=== PATIENT | female | born 1955 | race Caucasian/White ===

== ENCOUNTER 2020-12-15 12:46 | Outpatient (CLI) | payer MEDICARE | END 2020-12-15 12:47 | disposition home or self-care (01) | LOC: BICMRI 12:46 | PROVIDERS: ATTEND Psychiatry & Neurology Neurology | DX: G57.10 Meralgia paresthetica, unspecified lower limb (principal); M47.816 Spondylosis without myelopathy or radiculopathy, lumbar region | CPT/HCPCS: 71046; 72148 ==

== ENCOUNTER 2020-12-15 14:13 | Outpatient (CLI) | payer MEDICARE | END 2020-12-15 14:14 | disposition home or self-care (01) | LOC: BICMAMMO 14:13 | PROVIDERS: ATTEND Psychiatry & Neurology Neurology | DX: Z12.31 Encounter for screening mammogram for malignant neoplasm of breast (principal) | CPT/HCPCS: 77063; 77067 ==

== ENCOUNTER 2023-06-18 19:57 | Inpatient (IN) | payer MEDICARE ==
[2023-06-18 20:54] LABS: #Monocytes 0.3 thou/uL (0.11-0.59); #Neutrophils 4.1 thou/uL (1.40-6.50); %Basophils 0.4 % (0.0-1.0); %Eosinophils 0.5 % (0.0-10.0); %Lymphocytes 22.3 % (21.0-51.0); %Monocytes 4.6 % (0.0-10.0); %Neutrophils 71.5 % (42.0-75.0); Hematocrit 34.9 % (36.0-47.0); Hemoglobin 11.4 g/dL (12.0-16.0); Mean Corpuscular HGB CONC 32.7 g/dL (32.0-36.0); Mean Corpuscular Hemoglobin 27.9 pg (27.0-31.0); Mean Corpuscular Volume 85.5 fl (78.0-98.0); Mean Platelet Volume 10.2 fL (7.4-10.4); Platelet Count 238 10x3/uL (130-400); RBC Distribution Width 16.6 % (11.5-14.5); Red Blood Cell (RBC) Count 4.08 mill/uL (4.20-5.40); White Blood Cell (WBC) Count 5.7 10x3/uL (4.8-10.8)
[2023-06-18 21:18] LABS: ALT (SGPT) 10 U/L (8-55); AST (SGOT) 13 U/L (5-34); Alkaline Phosphatase 67 U/L (40-110); Anion Gap 17 mmol/L (10-20); BUN (Urea Nitrogen) 33 mg/dL (9.8-20.1); Bilirubin, Total 0.4 mg/dL (0.2-1.2); Calc. Creatinine Clearance 0 mL/min (70-130); Calcium 8.7 mg/dL (7.8-10.44); Carbon Dioxide 13 mmol/L (23-31); Chloride 110 mmol/L (98-107); Estimated GFR 21; Globulin 2.4 g/dL (2.4-3.5); Glucose 87 mg/dL (80-115); Potassium 4.8 mmol/L (3.5-5.1); Protein, Total 6.4 g/dL (5.8-8.1); Sodium 135 mmol/L (136-145)
[2023-06-18 21:19] LABS: Phosphorus 4.8 mg/dL (2.3-4.7)
[2023-06-18 21:27] LABS: Troponin I Less than 0.010 ng/mL (< 0.028)
[2023-06-18] MEDS ORDERED: Magnesium 2 GM/50 ML BAG (IN WATER) ONE (21:28)
[2023-06-18 21:38] LABS: Bacteria/HPF None Seen HPF (None Seen); Bilirubin Negative (Negative); Blood, Urine Negative (Negative); CAUTI Indications for Culture < 2yrs of age; Clarity Turbid (Clear); Glucose, Urine (Dipstick) Normal (Negative); Ketone, Urine Negative (Negative); Leukocyte Negative Leu/uL (Negative); Nitrite Negative (Negative); Protein, Urine (Dipstick) 50 mg/dL (Neg-Trace); RBC/HPF 0-3 HPF (0-3); Specific Gravity, Urine 1.017 (1.002-1.036); Urobilinogen Normal mg/dL (Less than 2); WBC/HPF 0-3 HPF (0-3); pH, Urine 5.5 (5.0-9.0)
[2023-06-18] MEDS ORDERED: Sodium Bicarbonate 150 MEQ in Dextrose 5% in Water 1,000 ML IV SCH (21:45)
[2023-06-18 21:56] LABS: Urine Culture Reflex Yes Yes
[2023-06-18 22:02] LABS: SARS-CoV-2 NAA Rapid Test Not Detected (NotDetected)
[2023-06-18] MEDS ORDERED: Acetaminophen 325 MG TAB PO PRN (22:50)
[2023-06-18] MEDS ORDERED: Metoclopramide HCl 10 MG/2 ML VIAL IVP PRN (22:54)
[2023-06-18] MEDS ORDERED: Pregabalin 50 MG CAP PO SCH (23:00)
[2023-06-18] MEDS ORDERED: Ipratropium/Albuterol 3 ML NEB NEB PRN (23:06)
[2023-06-18] MEDS ORDERED: Ondansetron ODT 4 MG TAB PO PRN (23:13)
[2023-06-18] MEDS ORDERED: Ondansetron PF 4 MG/2 ML Vial IVP PRN (23:13)
[2023-06-18] MEDS ORDERED: guaiFENesin ER 600 MG TAB PO SCH (23:15)
[2023-06-19 01:35] VITALS: BMI 31.4
[2023-06-19] MEDS: Sodium Bicarbonate 150 MEQ in Dextrose 5% in Water 1,000 ML IV SCH ×2 (01:49→10:57)
[2023-06-19] MEDS: Pregabalin 25 MG CAP PO SCH ×2 (02:04→21:56)
[2023-06-19 02:51] LABS: #Eosinphils 0.1 thou/uL (0.0-0.7); #Monocytes 0.4 thou/uL (0.11-0.59); #Neutrophils 3.3 thou/uL (1.40-6.50); %Basophils 0.4 % (0.0-1.0); %Eosinophils 0.9 % (0.0-10.0); %Lymphocytes 32.7 % (21.0-51.0); %Neutrophils 58.5 % (42.0-75.0); Hematocrit 31.9 % (36.0-47.0); Hemoglobin 10.6 g/dL (12.0-16.0); Mean Corpuscular HGB CONC 33.2 g/dL (32.0-36.0); Mean Corpuscular Hemoglobin 27.7 pg (27.0-31.0); Mean Corpuscular Volume 83.3 fl (78.0-98.0); Mean Platelet Volume 10.1 fL (7.4-10.4); Platelet Count 202 10x3/uL (130-400); RBC Distribution Width 16.7 % (11.5-14.5); Red Blood Cell (RBC) Count 3.83 mill/uL (4.20-5.40); White Blood Cell (WBC) Count 5.6 10x3/uL (4.8-10.8)
[2023-06-19 03:13] LABS: Magnesium 1.7 mg/dL (1.6-2.6)
[2023-06-19 03:45] LABS: Anion Gap 16 mmol/L (10-20); BUN (Urea Nitrogen) 31 mg/dL (9.8-20.1); Calc. Creatinine Clearance 33 mL/min (70-130); Calcium 8.9 mg/dL (7.8-10.44); Carbon Dioxide 14 mmol/L (23-31); Chloride 109 mmol/L (98-107); Estimated GFR 24; Glucose 102 mg/dL (80-115); Potassium 4.1 mmol/L (3.5-5.1); Sodium 135 mmol/L (136-145)
[2023-06-19] MEDS ORDERED: Magnesium 2 GM/50 ML(in water) 2 GM in Premix 1 BAG IVPB SCH ×2 (04:00→11:00)
[2023-06-19] MEDS: Loperamide HCl 2 MG CAP PO SCH ×3 (08:40→21:21)
[2023-06-19] MEDS: Diphenoxylate HCl/Atropine Tablet PO SCH ×2 (08:40→21:21)
[2023-06-19] MEDS: guaiFENesin ER 600 MG TAB PO SCH ×2 (08:41→21:21)
[2023-06-19] MEDS ORDERED: Pregabalin 25 MG CAP PO SCH (21:00)
[2023-06-19] MEDS ORDERED: Diphenoxylate HCl/Atropine Tablet PO SCH (21:00)
[2023-06-19] MEDS: Promethazine 25 MG TAB PO SCH (21:21)
[2023-06-20 06:12] LABS: #Eosinphils 0.2 thou/uL (0.0-0.7); #Monocytes 0.4 thou/uL (0.11-0.59); #Neutrophils 3.7 thou/uL (1.40-6.50); %Basophils 0.3 % (0.0-1.0); %Eosinophils 2.4 % (0.0-10.0); %Lymphocytes 31.8 % (21.0-51.0); %Monocytes 6.1 % (0.0-10.0); %Neutrophils 58.5 % (42.0-75.0); Hemoglobin 9.6 g/dL (12.0-16.0); Mean Corpuscular HGB CONC 33.1 g/dL (32.0-36.0); Mean Corpuscular Hemoglobin 27.4 pg (27.0-31.0); Mean Corpuscular Volume 82.9 fl (78.0-98.0); Mean Platelet Volume 10.3 fL (7.4-10.4); Platelet Count 215 10x3/uL (130-400); RBC Distribution Width 16.8 % (11.5-14.5); White Blood Cell (WBC) Count 6.4 10x3/uL (4.8-10.8)
[2023-06-20 06:36] LABS: Anion Gap 14 mmol/L (10-20); BUN (Urea Nitrogen) 29 mg/dL (9.8-20.1); Calc. Creatinine Clearance 33 mL/min (70-130); Calcium 8.7 mg/dL (7.8-10.44); Carbon Dioxide 21 mmol/L (23-31); Chloride 104 mmol/L (98-107); Estimated GFR 24; Glucose 85 mg/dL (80-115); Potassium 3.8 mmol/L (3.5-5.1); Sodium 135 mmol/L (136-145)
[2023-06-20] MEDS: guaiFENesin ER 600 MG TAB PO SCH (08:34)
[2023-06-20] MEDS: Diphenoxylate HCl/Atropine Tablet PO SCH (08:35)
[2023-06-20] MEDS: Promethazine 25 MG TAB PO SCH (08:35)
[2023-06-20] MEDS: Loperamide HCl 2 MG CAP PO SCH (08:35)
[2023-06-20 09:00] LABS: Magnesium 2.6 mg/dL (1.6-2.6)
[2023-06-20 13:08] VITALS: BP 101/66; TEMP 98.4
== END 2023-06-20 13:43 | disposition home or self-care (01) | DRG 683 ==
LOC: ERS 19:57 → 2NO 22:50 → T4-B 06-19 16:11 → OBSVTOIN 06-20 10:49
PROVIDERS: ADMIT Physician Assistant; ATTEND Emergency Medicine
DX: N17.9 Acute kidney failure, unspecified (principal); E87.20 Acidosis, unspecified; E83.42 Hypomagnesemia; N18.4 Chronic kidney disease, stage 4 (severe); G62.9 Polyneuropathy, unspecified; R53.1 Weakness; F17.210 Nicotine dependence, cigarettes, uncomplicated; R19.7 Diarrhea, unspecified; Z20.822 Contact with and (suspected) exposure to COVID-19; Z93.2 Ileostomy status; Z90.49 Acquired absence of other specified parts of digestive tract; Z98.890 Other specified postprocedural states; Z71.6 Tobacco abuse counseling
CPT/HCPCS: 36415; 36416; 80048; 80053; 81001; 83605; 83735; 84100; 84484; 85025; 87086; 93005; 94640; 96361; 96365; 96375; 96376; G0378; J3475; J7070; J7620; Q0169